=== PATIENT | female | born 1950 | race African-American/Black ===

== ENCOUNTER 2016-12-15 03:07 | Emergency (ER) | payer MEDICARE, OTHER ==
[~2016-12-15] VITALS: Ht 170.2 cm; Wt 77.1 kg
[2016-12-15 03:10] VITALS: BP 126/90
[2016-12-15] MEDS ORDERED: ATORVASTATIN CA20 MG ORAL (03:13)
[2016-12-15] MEDS ORDERED: PAROXETINE HC12.5 MG ORAL (03:13)
[2016-12-15] MEDS ORDERED: METFORMIN HCL500 M1 ORAL (03:13)
[2016-12-15] MEDS ORDERED: CARVEDILOL3.125 MG ORAL (03:13)
[2016-12-15] MEDS ORDERED: FUROSEMIDE20 M1 ORAL (03:13)
[2016-12-15] MEDS ORDERED: LEVOTHYROXINE25 MCG ORAL (03:13)
[2016-12-15] MEDS ORDERED: ALBUTEROL2.5 MG/3 M INH (03:13)
[2016-12-15] MEDS ORDERED: LISINOPRIL5 MG ORAL (03:13)
--- NOTE | 2016-12-15 03:42 | Emergency Room Report ---
History of Present Illness General Chief Complaint: Dyspnea/Respdistress Source: Patient, Family Member, Medical Record, EMS Present Illness HPI This is a 66-year-old female with a history of CAD and CHF. She presents with increasing shortness of breath for the last week. Worse tonight. Could not breathe. Per EMS observation was in a percentile on room air. It went up to 97 % on room oxygen. Worse with exertion. Worse with lying flat. She's been sleeping on the couch sitting up in the last couple of months. She said that her ejection fraction was 3035% before. In November a repeat echocardiogram showed has gone up to 40-45%. She denies any chest pain. Denies any nausea vomiting. Allergies: Coded Allergies: CODEINE (Verified Allergy, Unknown, 12/15/16) MORPHINE (Verified Allergy, Unknown, 12/15/16) Patient History Past Medical History: see triage record, old chart reviewed, MA, CAD, CHF Past Surgical History: other Pertinent Family History: none Social History: Denies: smoking Last Menstrual Period: NOT ANYMORE Now: No Immunizations: other Reviewed Nursing Documentation: PMH: Agreed, PSxH: Agreed Nursing Documentation-PMH Hx Asthma: Yes Hx COPD: Yes Hx Diabetes: Yes Review of Systems Eye: Denies: blurred vision, eye pain ENT: Denies: ear pain, nose congestion, throat swelling Respiratory: Reports: VELARDE, shortness of breath, Denies: cough Cardiovascular: Denies: chest pain, palpitations Gastrointestinal: Denies: abdominal pain, diarrhea, nausea, vomiting Musculoskeletal: Denies: back pain, joint pain Skin: Denies: rash Neurological: Denies: headache, numbness Endocrine: Denies: increased thirst, increased urine Hematologic/Lymphatic: Denies: easy bruising All Other Systems: negative except mentioned in HPI Physical Exam Vital Signs Date Time Temp Pulse Resp B/P Pulse Ox O2 Delivery O2 Flow Rate FiO2 12/15/16 03:06 97.9 128 22 126/90 96 Room Air vitals with tachycardia Sp02 EP Interpretation: reviewed, abnormal - On oxygen General Appearance: well appearing, alert, moderate distress Head: normocephalic, atraumatic Eyes: bilateral eye EOMI, bilateral eye PERRL ENT: hearing grossly normal, normal pharynx Neck: full range of motion, supple, no meningismus Respiratory: chest non-tender, respiratory distress, decreased breath sounds, accessory muscle use, rales Cardiovascular #1: regular rate, rhythm, no murmur Gastrointestinal: normal bowel sounds, non tender, no mass, no organomegaly, no bruit, non-distended Musculoskeletal: back normal, gait/station normal, normal range of motion Psychiatric: mood/affect normal Skin: warm/dry Procedures Critical Care Time Critical Care Time Critical care is mandated in this patient who presented with respiratory distress from CHF. Patient require my urgent intervention to attenuate the risks of respiratory collapse which may lead to cardiovascular collapse and . Critical care time is 35 minutes excluding any reportable procedure. Critical care time included evaluation, multiple reevaluation, looking at old charts, interpreting laboratory and diagnostic data, discussing case with patient and family and consultants, and charting. Medical Decision Making Diagnostic Impression: Primary Impression: CHF exacerbation Qualified Codes: I50.9 - Heart failure, unspecified Additional Impression: Acute respiratory failure with hypoxemia ER Course Patient presents with acute CHF. She diuresed well with Lasix. I held off and nitroglycerin or DELMY inhibitor because of her blood pressure. I discussed the case with [facility] who accepted the patient for transfer. First set of troponin negative. No evidence of pneumonia, PE, dissection to name a few. Laboratory Tests Test 12/15/16 03:50 12/15/16 04:24 White Blood Count 9.9 K/UL (4.8-10.8) Red Blood Count 4.41 M/UL (4.20-5.40) Hemoglobin 13.0 G/DL (12.0-16.0) Hematocrit 41.4 % (37.0-47.0) Mean Corpuscular Volume 94 FL (80-99) Mean Corpuscular Hemoglobin 29.4 PG (27.0-31.0) Mean Corpuscular Hemoglobin Concent 31.3 G/DL (32.0-36.0) L Red Cell Distribution Width 12.5 % (11.6-14.8) Platelet Count 229 K/UL (150-450) Mean Platelet Volume 8.8 FL (6.5-10.1) Neutrophils (%) (Auto) 70.1 % (45.0-75.0) Lymphocytes (%) (Auto) 20.5 % (20.0-45.0) Monocytes (%) (Auto) 5.0 % (1.0-10.0) Eosinophils (%) (Auto) 3.6 % (0.0-3.0) H Basophils (%) (Auto) 0.8 % (0.0-2.0) Prothrombin Time 9.7 SEC (9.30-11.50) Prothromb Time International Ratio 1.0 (0.9-1.1) Activated Partial Thromboplast Time 20 SEC (23-33) L Sodium Level 143 mEQ/L (135-145) Potassium Level 3.8 mEQ/L (3.4-4.9) Chloride Level 102 mEQ/L (98-107) Carbon Dioxide Level 24 mEQ/L (20-30) Anion Gap 17 (5-15) H Blood Urea Nitrogen 16 mg/dL (7-23) Creatinine 0.8 mg/dL (0.5-0.9) Estimat Glomerular Filtration Rate > 60 mL/min (>60) Glucose Level 211 mg/dL (74-106) H Calcium Level 9.4 mg/dL (8.6-10.2) Total Bilirubin 0.6 mg/dL (0.0-1.2) Aspartate Amino Transf (AST/SGOT) 15 U/L (5-40) Alanine Aminotransferase (ALT/SGPT) 14 U/L (3-33) Alkaline Phosphatase 76 U/L (35-104) Total Creatine Kinase 61 U/L (26-140) Creatine Kinase MB 1.9 ng/mL (< 3.8) Creatine Kinase MB Relative Index 3.1 Troponin I < 0.30 ng/mL (<=0.30) Pro-B-Type Natriuretic Peptide 772 pg/mL (0-125) H Total Protein 6.4 g/dL (6.6-8.7) L Albumin 4.0 g/dL (3.5-5.2) Globulin 2.4 g/dL Albumin/Globulin Ratio 1.6 (1.0-2.7) Urine Color Colorless Urine Appearance Clear Urine pH 6.0 (4.5-8.0) Urine Specific [place] 1.005 (1.005-1.035) Urine Protein Negative (NEGATIVE) Urine Glucose (UA) Negative (NEGATIVE) Urine Ketones Negative (NEGATIVE) Urine Occult Blood Negative (NEGATIVE) Urine Nitrite Negative (NEGATIVE) Urine Bilirubin Negative (NEGATIVE) Urine Urobilinogen Normal MG/DL (0.0-1.0) Urine Leukocyte Esterase Negative (NEGATIVE) Lab Results Impression labs with elevated BNP EKG Diagnostic Results Rate: normal, tachycardiac Rhythm: NSR ST Segments: no acute changes Rhythm Strip Diag. Results EP Interpretation: yes Rate: 110 Rhythm: NSR, no PVC's, no ectopy Chest X-Ray Diagnostic Results EP Interpretation: Yes Findings: no consolidation, no effusion, no pneumothorax, other - Cardiomegaly with CHF Number of Views: 1 Last Vital Signs Date Time Temp Pulse Resp B/P Pulse Ox O2 Delivery O2 Flow Rate FiO2 12/15/16 03:06 97.9 128 22 126/90 96 Room Air Status: improved Disposition: XF SNF Condition: Serious RAMON PRADO M.D. Dec 15, 2016 03:42
[2016-12-15] MEDS ORDERED: Albuterol ud Inhalation HHN ONE (03:45)
[2016-12-15] MEDS ORDERED: Ipratropium 0.02% Inh Soln 2.5ml UD HHN ONE (03:45)
[2016-12-15 04:00] VITALS: BP 109/73
[2016-12-15 04:06] LABS: BASOPHILS % (AUTO) 0.8 % (0.0-2.0); EOSINOPHILS % (AUTO) 3.6 % (0.0-3.0); LYMPHOCYTES % (AUTO) 20.5 % (20.0-45.0); MEAN CORPUSCULAR HEMOGLOBIN 29.4 PG (27.0-31.0); MEAN CORPUSCULAR HGB CONC 31.3 G/DL (32.0-36.0); MEAN CORPUSCULAR VOLUME 94 FL (80-99); MEAN PLATELET VOLUME 8.8 FL (6.5-10.1); NEUTROPHILS % (AUTO) 70.1 % (45.0-75.0); PLATELET COUNT 229 K/UL (150-450); RED BLOOD COUNT 4.41 M/UL (4.20-5.40); RED CELL DISTRIBUTION WIDTH 12.5 % (11.6-14.8); WHITE BLOOD COUNT 9.9 K/UL (4.8-10.8)
[2016-12-15 04:14] LABS: PROTHROMBIN TIME 9.7 SEC (9.30-11.50)
[2016-12-15 04:21] LABS: ALANINE AMINOTRANSFERASE 14 U/L (3-33); ALBUMIN/GLOBULIN RATIO 1.6 (1.0-2.7); ANION GAP 17 (5-15); ASPARTATE AMINO TRANSFERASE 15 U/L (5-40); CALCIUM 9.4 mg/dL (8.6-10.2); CARBON DIOXIDE 24 mEQ/L (20-30); CHLORIDE 102 mEQ/L (98-107); CREATININE 0.8 mg/dL (0.5-0.9); GLOMERULAR FILTRATION RATE > 60 mL/min (>60); HEMOLYSIS 10; POTASSIUM 3.8 mEQ/L (3.4-4.9); SODIUM 143 mEQ/L (135-145); TOTAL PROTEIN 6.4 g/dL (6.6-8.7)
[2016-12-15 04:23] LABS: TROPONIN I < 0.30 ng/mL (<=0.30)
[2016-12-15] MEDS ORDERED: Meropenem 1 GM in NS 110 ML IVPB ONE (04:30)
[2016-12-15 04:31] LABS: APPEARANCE,URINE CLEAR; KETONES,URINE NEGATIVE (NEGATIVE); LEUKOCYTE ESTERASE ,URINE NEGATIVE (NEGATIVE); NITRITE,URINE NEGATIVE (NEGATIVE); PROTEIN,URINE NEGATIVE (NEGATIVE); UROBILINOGEN,URINE NORMAL MG/DL (0.0-1.0)
[2016-12-15 04:32] LABS: CKMB 1.9 ng/mL (< 3.8)
[2016-12-15 05:00] VITALS: BP 94/63
[2016-12-15 06:29] VITALS: BP 105/67
--- NOTE | 2016-12-15 11:36 | Diagnostic Imaging Report ---
Indication: Chest Pain Comparison: None A single view chest radiograph was obtained. Findings: Cardiomediastinal appearance is within normal limits for age. Pulmonary vascularity is appropriate. The diaphragmatic contour is smooth and costophrenic angles are sharp. No pleural effusions are identified. The bones are osteopenic. There are surgical clips at the left side of the neck base. Impression: No acute findings
--- NOTE | 2016-12-16 16:30 | Cardiology Report ---
APPROVED REPORT EKG Measurement Heart [id number] Sinus tachycardia Possible Left atrial enlargement Nonspecific ST and T wave abnormality Abnormal ECG
== END 2016-12-15 06:29 ==
LOC: EDBD 03:07 → EMR 03:23
DX: I50.9 Heart failure, unspecified (principal); J96.01 Acute respiratory failure with hypoxia; J44.9 Chronic obstructive pulmonary disease, unspecified; J45.909 Unspecified asthma, uncomplicated; E11.9 Type 2 diabetes mellitus without complications; Z88.6 Allergy status to analgesic agent
CPT/HCPCS: 36415; 71010; 80053; 81003; 82550; 82553; 83880; 84484; 85025; 85610; 85730; 93005; 94640; 94664; 96374; 99291; J1940

== ENCOUNTER 2017-09-04 14:59 | Emergency (ER) | payer MEDICARE, OTHER ==
[~2017-09-04] VITALS: Ht 170.2 cm; Wt 72.6 kg
[~2017-09-04 14:59] MED LIST: ALBUTEROL2.5 MG/3 M INH; ATORVASTATIN CA20 MG ORAL; CARVEDILOL3.125 MG ORAL; FUROSEMIDE20 M1 ORAL; LEVOTHYROXINE25 MCG ORAL; LISINOPRIL5 MG ORAL; METFORMIN HCL500 M1 ORAL; PAROXETINE HC12.5 MG ORAL
[2017-09-04 15:05] VITALS: BP 137/87
--- NOTE | 2017-09-04 15:09 | Emergency Room Report ---
History of Present Illness General Chief Complaint: Abdominal Pain Source: Patient, EMS (Anamaria Ewing) Present Illness HPI 66-year-old female presents to the emergency department complaining of acute onset chest tightness that she describes as a tight band around her chest. Patient states that she does not consider her symptoms of pain but states would be 2/10 in severity. He should reports nausea denies vomiting denies dizziness. Patient reports mild shortness of breath. Patient has a history of TX which required stents in May and takes the lowest dose aspirin daily. Patient also reports history of CHF, COPD, hypothyroid and DM for which she takes medications daily for. Denies fevers, chills, productive cough, swelling in the lower extremities. She reports sudden onset after having stressful phone call trying to reach her daughter who had to go to the hospital via ambulance. Denies Palpitations, LOC, AMS, dizziness, Changes in Vision, Sensation, paresthesias, or a sudden severe headache. (Anamaria Ewing) Allergies: Coded Allergies: CODEINE (Verified Allergy, Unknown, 12/15/16) MORPHINE (Verified Allergy, Unknown, 12/15/16) Patient History Past Medical History: see triage record, DM, HTN, TX Past Surgical History: none Pertinent Family History: none Last Menstrual Period: Post Reviewed Nursing Documentation: PMH: Agreed, PSxH: Agreed (Anamaria Ewing) Nursing Documentation-PMH Hx Cardiac Problems: Yes - stent Hx Hypertension: Yes Hx Asthma: Yes Hx COPD: Yes Hx Diabetes: Yes (Anamaria Ewing) Review of Systems All Other Systems: negative except mentioned in HPI (Anamaria Ewing) Physical Exam Vital Signs Date Time Temp Pulse Resp B/P (MAP) Pulse Ox O2 Delivery O2 Flow Rate FiO2 09/04/17 14:53 100 18 130/85 96 Room Air Sp02 EP Interpretation: reviewed, normal General Appearance: no apparent distress, alert, GCS 15, non-toxic Head: normocephalic, atraumatic Eyes: bilateral eye normal inspection, bilateral eye PERRL ENT: hearing grossly normal, normal voice Neck: full range of motion, supple/symm/no masses Respiratory: lungs clear, normal breath sounds, no wheezing, speaking full sentences Cardiovascular #1: regular rate, rhythm, no edema, normal capillary refill Gastrointestinal: normal bowel sounds, non tender, soft, no guarding, no rebound Rectal: deferred Genitourinary: normal inspection, no CVA tenderness Musculoskeletal: back normal, gait/station normal, normal range of motion, non- tender, no calf tenderness Neurologic: alert, oriented x3, responsive, motor strength/tone normal, sensory intact, speech normal Skin: normal color, no rash, warm/dry, well hydrated (Anamaria Ewing) Medical Decision Making PA Attestation Dr. Klein is my supervising Physician whom patient management has been discussed with. (Anamaria Ewing) Diagnostic Impression: Primary Impression: Chest tightness ER Course 66-year-old female presents to the emergency department complaining of acute onset chest tightness that she describes as a tight band around her chest. Patient states that she does not consider her symptoms of pain but states would be 2/10 in severity. He should reports nausea denies vomiting denies dizziness. Patient reports mild shortness of breath. Patient has a history of TX which required stents in May and takes the lowest dose aspirin daily. Patient also reports history of CHF, COPD, hypothyroid and DM for which she takes medications daily for. Denies fevers, chills, productive cough, swelling in the lower extremities. She reports sudden onset after having stressful phone call trying to reach her daughter who had to go to the hospital via ambulance. Denies Palpitations, LOC, AMS, dizziness, Changes in Vision, Sensation, paresthesias, or a sudden severe headache. Ddx considered but are not limited to TX, pneumonia, contusion, costochondritis , PE, ACS, Shoulder strain, Chest wall contusion. aortic dissection. Vital signs: are WNL, pt. is afebrile H&PE are most consistent with [ ] ORDERS: - EKG: -CBC -CMP -CK-MB -Troponins CXR: ED INTERVENTIONS: - PT. placed on cardiac monitoring. - 243mg ASA PO ( pt. takes 81mg daily, 325- 81= 244 * ED has 81mg tabs x 3 = 243) DISCHARGE: At this time pt. is stable for d/c to home. Will provide printed patient care instructions, and any necessary prescriptions. Care plan and follow up instructions have been discussed with the patient prior to discharge. (Anamaria Ewing) ER Course I agree with PA interpretation of XR results Patient requires admission for acute coronary syndrome She is stable for transfer I spoke to Dr. Cano from [facility], authorization #[id number] He has accepted patient for transfer (Adolph Klein M.D.) EKG Diagnostic Results EP Interpretation: Dr. Klein Rate: normal - 88bpm Rhythm: NSR ASA given to the pt in ED: Yes PA Scribe Text - EK BPM NSR - no acute ST changes reviewed by Dr. Klein, her preliminary interpretation was scribed by MARCEL Ewing (Anamaria Ewing P.ATian) Last Vital Signs Date Time Temp Pulse Resp B/P (MAP) Pulse Ox O2 Delivery O2 Flow Rate FiO2 09/04/17 14:53 100 18 130/85 96 Room Air (Anamaria Ewing P.ATian) Anamaria Ewing PAlison Sep 04, 2017 15:09 Adolph Klein M.D. Sep 04, 2017 17:19
[2017-09-04] MEDS ORDERED: Aspirin Baby 81mg ORAL ONE ×2 (15:30)
[2017-09-04 15:36] LABS: EOSINOPHILS % (AUTO) 4.9 % (0.0-3.0); LYMPHOCYTES % (AUTO) 29.7 % (20.0-45.0); MEAN CORPUSCULAR HEMOGLOBIN 28.8 PG (27.0-31.0); MEAN CORPUSCULAR HGB CONC 30.6 G/DL (32.0-36.0); MEAN CORPUSCULAR VOLUME 94 FL (80-99); MEAN PLATELET VOLUME 7.9 FL (6.5-10.1); MONOCYTES % (AUTO) 8.1 % (1.0-10.0); NEUTROPHILS % (AUTO) 56.3 % (45.0-75.0); PLATELET COUNT 280 K/UL (150-450); RED BLOOD COUNT 4.27 M/UL (4.20-5.40); RED CELL DISTRIBUTION WIDTH 12.1 % (11.6-14.8); WHITE BLOOD COUNT 9.7 K/UL (4.8-10.8)
[2017-09-04 16:05] LABS: ALANINE AMINOTRANSFERASE 17 U/L (12-78); ALBUMIN/GLOBULIN RATIO 1.3 (1.0-2.7); ANION GAP 10 mmol/L (5-15); ASPARTATE AMINO TRANSFERASE 11 U/L (15-37); CALCIUM 10.1 MG/DL (8.5-10.1); CARBON DIOXIDE 28 MMOL/L (21-32); CHLORIDE 104 MMOL/L (98-107); CREATININE 0.8 MG/DL (0.55-1.30); GLOMERULAR FILTRATION RATE > 60 mL/min (>60); POTASSIUM 4.7 MMOL/L (3.5-5.1); SODIUM 142 MMOL/L (136-145); TOTAL PROTEIN 7.1 G/DL (6.4-8.2)
[2017-09-04] MEDS ORDERED: Mylanta II UD 30ml ORAL ONE (16:45)
[2017-09-04] MEDS ORDERED: Lidocaine 2% Visc 15ml soln ORAL ONE (16:45)
--- NOTE | 2017-09-04 16:45 | Diagnostic Imaging Report ---
Indication: PAIN right-sided chest pain Technique: One view of the chest Comparison: 12/15/2016 Findings: Lungs and pleural spaces are clear. Heart size is upper limits normal . Surgical clips are again seen in the left neck. Findings are unchanged Impression: No acute process
[2017-09-04] MEDS ORDERED: Nitroglycerin Subl 0.4mg tab SL PRN (17:30)
[2017-09-04 18:51] VITALS: BP 106/75
[2017-09-04 20:43] VITALS: BP 110/71
[2017-09-04 22:43] VITALS: BP 105/68
[2017-09-04 22:45] VITALS: BP 105/68
--- NOTE | 2017-09-05 16:39 | Cardiology Report ---
APPROVED REPORT EKG Measurement Heart [id number] Normal sinus rhythm Possible Left atrial enlargement Possible Anterior infarct, age undetermined Abnormal ECG
== END 2017-09-04 22:45 | disposition short-term general hospital (02) ==
LOC: EDBD 14:59 → EMR 15:59
DX: R07.89 Other chest pain (principal); E11.9 Type 2 diabetes mellitus without complications; I10 Essential (primary) hypertension; J44.9 Chronic obstructive pulmonary disease, unspecified; Z88.6 Allergy status to analgesic agent
CPT/HCPCS: 36415; 71010; 80053; 83690; 83880; 84484; 85025; 93005; 96360; 99284